=== PATIENT | female | born 1975 | race Caucasian/White ===

== ENCOUNTER → 2016-12-18 | Outpatient (CLI) | payer OTHER ==
[2016-12-18 13:16] LABS: ASPARTATE AMINO TRANSFERASE 14 U/L (15-37); BLOOD UREA NITROGEN 14 mg/dL (7-18)
== END | disposition home or self-care (01) ==
LOC: CFH 07:16
PROVIDERS: ATTEND Family Medicine
DX: R51 Headache (principal)
CPT/HCPCS: 36415; 80053; 80061; 83036; 84443; 85025; 85651

== ENCOUNTER → 2016-12-19 | Outpatient (CLI) | payer OTHER ==
[~2016-12-19] MED LIST: GADOBUTROL 7.5 MMOL/7.5 ML PFS ONE
== END | disposition home or self-care (01) ==
LOC: RAD 06:45
PROVIDERS: ATTEND Family Medicine
DX: L72.3 Sebaceous cyst (principal)
CPT/HCPCS: 70553; 93880; A9585

== ENCOUNTER → 2017-09-07 | Outpatient (CLI) | payer OTHER ==
[2017-09-07 15:37] LABS: BASOPHILS # (AUTO) 0.05 x10^3/uL (0-0.1); BASOPHILS % (AUTO) 1 % (0-1); EOSINOPHILS # (AUTO) 0.53 x10^3/uL (0-0.4); EOSINOPHILS % (AUTO) 9 % (1-7); LYMPHOCYTES # (AUTO) 2.22 x10^3/uL (1-3.4); LYMPHOCYTES % (AUTO) 36 % (22-44); MD NO; MEAN CORPUSCULAR HEMOGLOBIN 31.1 pg (27.0-34.8); MEAN CORPUSCULAR VOLUME 91.3 fL (80-100); MEAN PLATELET VOLUME 8.6 fL (7.4-10.4); MONOCYTES # (AUTO) 0.37 x10^3/uL (0.2-0.8); MONOCYTES % (AUTO) 6 % (2-9); NEUTROPHILS # (AUTO) 3.09 x10^3/uL (1.8-6.8); NEUTROPHILS % (AUTO) 49 % (42-75); PLATELET COUNT 258 x10^3/uL (130-400); RED BLOOD COUNT 5.05 x10^6/uL (3.82-5.3); RED CELL DISTRIBUTION WIDTH 12.8 % (9.6-15.2)
[2017-09-07 15:46] LABS: ALANINE AMINOTRANSFERASE 21 U/L (12-78); ALBUMIN 4.2 g/dL (3.4-5.0); ANION GAP 8 mmol/L (5-15); CALCIUM 8.8 mg/dL (8.5-10.1); CHLORIDE 106 mmol/L (98-107); CREATININE 0.92 mg/dL (0.55-1.02)
[2017-09-07 15:56] LABS: ALKALINE PHOSPHATASE 55 U/L (45-117); BILIRUBIN,TOTAL 1.1 mg/dL (0.2-1.0); THYROID STIMULATING HORMONE 0.749 mIU/L (0.358-3.740); TOTAL PROTEIN 7.2 g/dL (6.4-8.2)
== END | disposition home or self-care (01) ==
LOC: CFH 08:35
PROVIDERS: ATTEND Obstetrics & Gynecology
DX: Z13.220 Encounter for screening for lipoid disorders (principal); Z13.29 Encounter for screening for other suspected endocrine disorder; Z13.0 Encounter for screening for diseases of the blood and blood-forming organs and certain disorders involving the immune mechanism; R79.89 Other specified abnormal findings of blood chemistry
CPT/HCPCS: 36415; 77063; 80053; 82306; 84443; 85025; 77067

== ENCOUNTER 2018-01-12 16:38 | Inpatient (IN) | payer OTHER ==
[~2018-01-12] VITALS: Ht 165.1 cm; Wt 58.0 kg
[2018-01-12] MEDS ORDERED: SODIUM CHLORIDE FLUSH 10ML SYR IVF ONE (17:30)
[2018-01-12 17:53] LABS: BASOPHILS # (AUTO) 0.04 x10^3/uL (0-0.1); BASOPHILS % (AUTO) 0 % (0-1); EOSINOPHILS # (AUTO) 0.23 x10^3/uL (0-0.4); EOSINOPHILS % (AUTO) 2 % (1-7); LYMPHOCYTES % (AUTO) 18 % (22-44); MD NO; MEAN CORPUSCULAR HEMOGLOBIN 31.7 pg (27.0-34.8); MEAN CORPUSCULAR HGB CONC 34.5 g/dL (32.4-35.8); MEAN CORPUSCULAR VOLUME 91.7 fL (80-100); MEAN PLATELET VOLUME 7.3 fL (7.4-10.4); MONOCYTES # (AUTO) 0.81 x10^3/uL (0.2-0.8); MONOCYTES % (AUTO) 6 % (2-9); NEUTROPHILS # (AUTO) 9.23 x10^3/uL (1.8-6.8); NEUTROPHILS % (AUTO) 73 % (42-75); PLATELET COUNT 280 x10^3/uL (130-400); RED BLOOD COUNT 4.93 x10^6/uL (3.82-5.3); RED CELL DISTRIBUTION WIDTH 12.6 % (9.6-15.2)
[2018-01-12 18:06] LABS: ALANINE AMINOTRANSFERASE 18 U/L (12-78); ALBUMIN 3.8 g/dL (3.4-5.0); ANION GAP 6 mmol/L (5-15); CALCIUM 8.6 mg/dL (8.5-10.1); CHLORIDE 109 mmol/L (98-107); CREATININE 0.84 mg/dL (0.55-1.02)
[2018-01-12] MEDS ORDERED: OMNIPAQUE 350 MG/ML, 100ML BOTTLE ONE (18:06)
[2018-01-12 18:11] LABS: ALKALINE PHOSPHATASE 53 U/L (45-117); BILIRUBIN,TOTAL 1.1 mg/dL (0.2-1.0); TOTAL PROTEIN 7.3 g/dL (6.4-8.2)
[2018-01-12 19:16] LABS: CULTURE INDICATED? YES; MICROSCOPIC INDICATED
[2018-01-12] MEDS ORDERED: CEFOTETAN PMX 1GM/50ML 50 ML IV ONE (19:30)
[2018-01-12] MEDS ORDERED: SODIUM CHLORIDE 0.9% 1,000 ML IV ONE (19:30)
[2018-01-12] MEDS ORDERED: EPINEPHRINE 1 MG/ML, 1ML ONE (20:00)
[2018-01-12] MEDS ORDERED: BUPIVACAINE/PF 0.25% ONE (20:00)
[2018-01-12] MEDS ORDERED: FENTANYL PF 100 MCG/2ML ONE ×2 (20:13→20:25)
[2018-01-12] MEDS ORDERED: MIDAZOLAM 1 MG/ML, 2ML ONE (20:13)
[2018-01-12] MEDS ORDERED: DEXAMETHASONE 4 MG/ML, 1ML ONE (20:25)
[2018-01-12] MEDS ORDERED: MIDAZOLAM 1 MG/ML, 5ML ONE (20:25)
[2018-01-12] MEDS ORDERED: CEFOTETAN 1 GM ONE (20:25)
[2018-01-12] MEDS ORDERED: ROCURONIUM 10MG/ML,5ML ONE (20:25)
[2018-01-12] MEDS ORDERED: GLYCOPYRROLATE 0.2MG/1ML, 5ML ONE (20:25)
[2018-01-12] MEDS ORDERED: NEOSTIGMINE 1 MG/ML, 10ML ONE (20:25)
[2018-01-12] MEDS ORDERED: PROPOFOL 10 MG/ML, 20ML ONE (20:25)
[2018-01-12] MEDS ORDERED: SUCCINYLCHOLINE 20 MG/ML, 10ML ONE (20:25)
[2018-01-12] MEDS ORDERED: ONDANSETRON 2MG/ML, 2ML ONE (20:25)
[2018-01-12] MEDS ORDERED: BUPIVACAINE/PF 0.25% INFIL ONE (20:40)
[2018-01-12] MEDS ORDERED: PROMETHAZINE 25 MG/ML, 1ML IV PRN (21:30)
[2018-01-12] MEDS ORDERED: ALBUTEROL SULFATE 2.5 MG/3 ML NPPB PRN (21:30)
[2018-01-12] MEDS ORDERED: MEPERIDINE/PF 25MG/0.5ML IVPush PRN (21:30)
[2018-01-12] MEDS ORDERED: ACETAMINOPHEN 325 MG TABLET PO PRN (21:30)
[2018-01-12] MEDS ORDERED: KETOROLAC 30 MG/1 ML IV PRN (21:30)
[2018-01-12] MEDS ORDERED: FENTANYL PF 100 MCG/2ML IV PRN (21:30)
[2018-01-12] MEDS ORDERED: OXYcodone 5 MG/5 ML ORAL.SOL UDC PO PRN (21:30)
[2018-01-12] MEDS ORDERED: MORPHINE SULFATE 4 MG/ML, 1ML IVPush PRN ×2 (21:30→23:00)
[2018-01-12] MEDS ORDERED: ACETAMINOPHEN 650 MG/20.3 ML UDC ONE (21:32)
[2018-01-12] MEDS ORDERED: OXYcodone 5 MG/5 ML ORAL.SOL UDC ONE (21:32)
[2018-01-12] MEDS ORDERED: KETOROLAC 30 MG/1 ML ONE (21:32)
[2018-01-12 22:15] VITALS: BP 113/69
[2018-01-12 22:36] VITALS: BP 113/69
[2018-01-12] MEDS ORDERED: ONDANSETRON 2MG/ML, 2ML IVPush PRN (23:00)
[2018-01-12] MEDS ORDERED: D5%-0.9% NACL+KCL 20MEQ 1,000 ML IV SCH (23:00)
[2018-01-12] MEDS ORDERED: OXYcodone/APAP 7.5/325MG TABLET PO PRN (23:00)
[2018-01-13] VITALS: BP 95/56
[2018-01-13 04:00] VITALS: BP 110/70
[2018-01-13 08:37] VITALS: BP 106/62
[2018-01-13] MEDS ORDERED: OXYC-302 PO (09:42)
== END 2018-01-13 09:59 | disposition home or self-care (01) | DRG 340 ==
LOC: ED 18:52 → EDIP 19:36 → 4NOR 22:20
PROVIDERS: ADMIT Surgery; ATTEND Surgery
PROC: 0DTJ4ZZ Resection of Appendix, Percutaneous Endoscopic Approach (ICD-10-PCS; principal; 2018-01-12 20:30)
DX: K35.3 Acute appendicitis with localized peritonitis (principal); K66.8 Other specified disorders of peritoneum; Z82.49 Family history of ischemic heart disease and other diseases of the circulatory system; Z88.8 Allergy status to other drugs, medicaments and biological substances; Z88.2 Allergy status to sulfonamides
CPT/HCPCS: 36415; 74177; 76830; 80053; 81001; 83690; 84703; 85025; 87086; 88304; 99285; J0171; J1100; J1885; J2250; J2405; J2704; J2710; J3010; J3490; Q9967; J0330; J3480; S0074

== ENCOUNTER → 2018-02-27 | Outpatient (CLI) | payer SELFPAY ==
[~2018-02-27] MED LIST changes: -GADOBUTROL 7.5 MMOL/7.5 ML PFS ONE; +OXYC-302 PO
== END | disposition home or self-care (01) ==
LOC: CFH 14:04
PROVIDERS: ATTEND Obstetrics & Gynecology
DX: R92.2 Inconclusive mammogram (principal)
CPT/HCPCS: 76642

== ENCOUNTER → 2018-09-12 | Outpatient (CLI) | payer OTHER | END | disposition home or self-care (01) | LOC: CFH 07:06 | PROVIDERS: ATTEND Obstetrics & Gynecology | DX: Z12.31 Encounter for screening mammogram for malignant neoplasm of breast (principal) | CPT/HCPCS: 77063; 77067 ==

== ENCOUNTER → 2018-10-10 | Outpatient (CLI) | payer OTHER | END | disposition home or self-care (01) | LOC: CFH 14:02 | PROVIDERS: ATTEND Obstetrics & Gynecology | DX: R92.2 Inconclusive mammogram (principal); Z80.3 Family history of malignant neoplasm of breast | CPT/HCPCS: 76377; 76642 ==

== ENCOUNTER 2019-09-25 14:26 | Outpatient (CLI) | payer OTHER | END 2019-09-25 23:59 | disposition home or self-care (01) | LOC: CFH 14:26 | PROVIDERS: ATTEND Obstetrics & Gynecology | DX: Z12.31 Encounter for screening mammogram for malignant neoplasm of breast (principal); N64.89 Other specified disorders of breast | CPT/HCPCS: 76641; 77063; 77067 ==